=== PATIENT | female | born 1950 | race Caucasian/White ===

== ENCOUNTER 2017-09-29 10:20 | Inpatient (IN) | payer OTHER ==
[2017-09-29] MEDS ORDERED: SODIUM CHLORIDE 0.9% 500 ML INFUS.BAG IV ONE (11:03)
[2017-09-29] MEDS ORDERED: ACETAMINOPHEN 1000 MG/100 ML VIAL (NON FORMULARY) IVPB ONE (11:08)
--- NOTE | 2017-09-29 11:13 | PDOC ---
History of Present Illness - General Chief Complaint: Chest Pain Stated Complaint: CHEST PAIN Time Seen by Provider: 09/29/17 10:33 - History of Present Illness Initial Comments: 09/29/17 11:13 67 year old female with a PMH of HTN who presents to our ED c/o 1 week h/o productive (whitish and greenish sputum) cough with associated shortness of breath, subjective fever, generalized body aches and weakness. Patient notes associated non-radiating non qualifiable 2/10 chest pain. Patient also c/o L arm pain and swelling following administration of the Pneumovax vaccine 4 days previous. States she has been trying OTC medications for her cough and fever without symptomatic improvement prompting her visit to the ED. Patient denies any abdominal pain, dysuria/hematuria, diarrhea/constipation, recent travel or sick contacts. Past History - Past Medical History Allergies/Adverse Reactions: Allergies Allergy/AdvReac Type Severity Reaction Status Date / Time No Known Allergies Allergy Verified 09/29/17 10:23 Home Medications: Ambulatory Orders Amlodipine Besylate [Norvasc -] 5 mg PO DAILY 09/29/17 Clindamycin [Cleocin -] 300 mg PO TID #42 capsule 10/02/17 Lactobacillus Acidophilus [Bacid -] 1 tab PO DAILY #7 tab 10/02/17 COPD: No HTN: Yes - Surgical History Appendectomy: Yes Cholecystectomy: Yes - Suicide/Smoking/Psychosocial Hx Smoking History: Never smoked Review of Systems - Review of Systems Constitutional: Yes: Chills, Fever HEENTM: No: Recent change in vision Respiratory: Yes: Shortness of Breath, Productive cough (greenish sputum) Cardiac (ROS): Yes: Chest Pain, Lightheadedness. No: Palpitations, Syncope ABD/GI: No: Constipated, Diarrhea, Nausea, Vomiting : No: Burning, Dysuria *Physical Exam - Vital Signs Last Vital Signs Temp Pulse Resp BP Pulse Ox 97.9 F 103 H 16 122/72 100 09/29/17 10:24 09/29/17 10:24 09/29/17 10:24 09/29/17 10:24 09/29/17 10:24 - Physical Exam General Appearance: Yes: Nourished, Appropriately Dressed HEENT: positive: EOMI, JO Neck: positive: Trachea midline, Supple Respiratory/Chest: positive: Lungs Clear, Normal Breath Sounds Cardiovascular: positive: S1, S2. negative: Edema, JVD Gastrointestinal/Abdominal: positive: Normal Bowel Sounds, Soft Extremity: positive: Other (LUE erythema, warmth, TTP, 2+ radial pulse, full ROM ) Neurologic: positive: Fully Oriented, Alert ED Treatment Course - LABORATORY CBC & Chemistry Diagram: 10/02/17 06:30 10/02/17 06:30 - RADIOLOGY Radiology Studies Ordered: Category Date Time Status CHEST PA & LAT [RAD] Stat Radiology 09/29/17 11:01 Ordered Medical Decision Making - Medical Decision Making 09/29/17 11:20 67 year old female presents with 1 week h/o cough, body aches + LUE erythema, edema. Presumptive cellulitis diagnosis + possible PNA/r/o ACS/Influenza/Viral URI. 09/29/17 11:51 Leukocytosis 19, will start empiric Vancomycin for MRSA. Infectious disease consult pending. 09/29/17 12:35 CXR negative for consolidation/infiltrate/cardiomegaly. Troponin (-) x1. Influenza negative. Will admit patient to inpatient medicine service for further evaluation of cellulitis. Patient and patient's friend @ bedside counseled on POC. Will continue to monitor while in ED. *DC/Admit/Observation/Transfer Diagnosis at time of Disposition: Cellulitis - Discharge Dispostion Condition at time of disposition: Fair Admit: Yes - Prescriptions - Referrals - Patient Instructions - Post Discharge Activity
[2017-09-29 11:20] LABS: BASO % 1.4 % (0-2.0); EOS % 0.3 % (0-4.5); HEMATOCRIT 37.2 % (32.4-45.2); HEMOGLOBIN 12.5 GM/dL (10.7-15.3); LYMPH % 16.1 % (8-40); MCH 28.5 pg (25.7-33.7); MCHC 33.5 g/dl (32.0-36.0); MEAN CELL VOLUME 85.1 fl (80-96); MEAN PLT VOLUME 8.7 fl (7.5-11.1); NEUT % 72.2 % (42.8-82.8); PLATELET COUNT 376 K/MM3 (134-434); RBC 4.38 M/mm3 (3.60-5.2); RDW 14.1 % (11.6-15.6); WHITE BLOOD COUNT 19.1 K/mm3 (4.0-10.0)
[2017-09-29] MEDS ORDERED: ACETAMINOPHEN INJECTION 100 ML IVPB ONE (11:35)
[2017-09-29 11:41] LABS: CHLORIDE 103 mmol/L (98-107); SODIUM 138 mmol/L (136-145)
[2017-09-29 11:45] LABS: ALBUMIN 3.3 g/dl (3.4-5.0); ANION GAP 9 (8-16); BLOOD UREA NITROGEN 9 mg/dL (7-18); CALCIUM 9.2 mg/dL (8.5-10.1); CO2 26 mmol/L (21-32); GLUCOSE,RANDOM 126 mg/dL (74-106)
[2017-09-29 11:48] LABS: BILIRUBIN,TOTAL 0.5 mg/dL (0.2-1.0); CREATININE 0.8 mg/dL (0.55-1.02); SGPT/ALT 85 U/L (12-78); TOT PROT 7.3 g/dl (6.4-8.2)
[2017-09-29 11:51] LABS: ALK PHOS 131 U/L (45-117); POTASSIUM 4.1 mmol/L (3.5-5.1); SGOT/AST 78 U/L (15-37)
[2017-09-29] MEDS ORDERED: VANCOMYCIN 1,000 MG in DEXTROSE 5%-WATER - 250 ML IVPB ONE (12:34)
[2017-09-29] MEDS ORDERED: VANCOMYCIN 1 GRAM (PRE-DOCKED) 1,000 MG/250 ML BAG IVPB ONE (12:39)
--- NOTE | 2017-09-29 12:39 | PDOC ---
Attending Attestation - Resident Resident Name: DayoNisha - ED Attending Attestation I have performed the following: I have examined & evaluated the patient, The case was reviewed & discussed with the resident, I agree w/resident's findings & plan, Exceptions are as noted - HPI HPI: 09/29/17 12:35 "The patient is a 67 year old female with past medical history of hypertension who presents to the ED with complaints of 1 week of productive cough, fevers, and L arm pain. She reports productive white/green sputum and reports associated shortness of breath. The patient also reports a midsternal chest pain she relates to coughing and reports associated myalgias. Pt endorses subjective fevers without any measured temps. Additionally the patient received the pneumovax on 5 days ago and reports having worsening left arm pain, redness , and swelling since then. She denies any nausea, vomiting, diarrhea, headache, or urinary complaints. " - Physicial Exam PE: 09/29/17 12:37 "GENERAL: Awake, alert, and fully oriented, in no acute distress. HEAD: No signs of trauma EYES: PERRLA, EOMI, sclera anicteric, conjunctiva clear ENT: Auricles normal inspection, hearing grossly normal, nares patent, oropharynx clear without exudates. Moist mucosa NECK: Nontender, no stepoffs, Normal ROM, supple, no lymphadenopathy, JVD, or masses LUNGS: Breath sounds equal, clear to auscultation bilaterally. No wheezes, and no crackles HEART: Regular rate and rhythm, normal S1 and S2, no murmurs, rubs or gallops ABDOMEN: Soft, nontender, normoactive bowel sounds. No guarding, no rebound. No masses EXTREMITIES: Normal range of motion, no edema. No clubbing or cyanosis. No cords, erythema, or tenderness NEUROLOGICAL: Cranial nerves II through XII intact. 5/5 strength and sensation in all extremities, Normal speech, normal gait, normal cerebellar function SKIN: L arm with 10cm area of redness, induration, tender to palpation - Medical Decision Making 09/29/17 12:38 67 F with fevers, cough, and L arm swelling/pain. Exam consistent with cellulitis of L arm. Will also evaluate for PNA given cough. - Labs, cultures - CXR - Vancomycin
[2017-09-29 14:27] VITALS: BMI 26.6
--- NOTE | 2017-09-29 15:18 | HP ---
CHIEF COMPLAINT: fever, chills, left upper extremity edema and erythema PCP: eliel martinez MD in [place] HISTORY OF PRESENT ILLNESS: This is a 67 year old female with PMHx of HTN, hysterectomy (1998), appendectomy , cholecytectomy, benign pancreatic tumor removal (2001), who presented to the ED with cough since before , chills, fever, wheezing since receiving the Pneumovax on . The patient reports prior to receiving the vaccine she had a cough with yellowish sputum. On morning she received the pneumonia vaccine and then in the afternoon developed a subjective fever and chills. The patient also reports on Thursday she noticed erythema and edema to the vaccine site. She also states she has some sternal chest pain with coughing. She denies any palpitations, headache, dizziness, urinary symptoms, lower extremity edema. The patient also notes arthalgia, myalgia, weakness. ER course was notable for: (1) Temp 97.9, pulse 103, BP 122/72, resp 16, O2 100% on RA (2) WBC 19.1 (3) AST 78, ALT 85, alk phos 131 Recent Travel: Returned from [place] on 08/27/17 PAST MEDICAL HISTORY: HTN PAST SURGICAL HISTORY: As above Social History: Smoking: denies Alcohol: drinks one glass of wine per night Drugs: denies Family History: Allergies No Known Allergies Allergy (Verified 09/29/17 10:23) HOME MEDICATIONS: Home Medications Medication Instructions Recorded Amlodipine Besylate [Norvasc -] 5 mg PO DAILY 09/29/17 REVIEW OF SYSTEMS CONSTITUTIONAL: Subjective fever, chills, generalized weakness since afternoon Absent: diaphoresis, malaise, loss of appetite, weight change HEENT: Absent: rhinorrhea, nasal congestion, throat pain, throat swelling, difficulty swallowing, mouth swelling, ear pain, eye pain, visual changes CARDIOVASCULAR: Sternal chest pain with coughing Absent: syncope, palpitations, irregular heart rate, lightheadedness, peripheral edema RESPIRATORY: + cough with yellow sputum. Wheezing and chest tightness noted. Absent: shortness of breath, dyspnea with exertion, orthopnea, stridor, hemoptysis GASTROINTESTINAL: Absent: abdominal pain, abdominal distension, nausea, vomiting, diarrhea, constipation, melena, hematochezia GENITOURINARY: Absent: dysuria, frequency, urgency, hesitancy, hematuria, flank pain, genital pain MUSCULOSKELETAL: Arthralgia, myalgia since afternoon. Absent: joint swelling, back pain, neck pain SKIN: Absent: rash, itching, pallor HEMATOLOGIC/IMMUNOLOGIC: Absent: easy bleeding, easy bruising, lymphadenopathy, frequent infections ENDOCRINE: Absent: unexplained weight gain, unexplained weight loss, heat intolerance, cold intolerance NEUROLOGIC: Absent: headache, focal weakness or paresthesias, dizziness, unsteady gait, seizure, mental status changes, bladder or bowel incontinence PSYCHIATRIC: Absent: anxiety, depression, suicidal or homicidal ideation, hallucinations. PHYSICAL EXAMINATION Vital Signs - 24 hr 09/29/17 09/29/17 09/29/17 10:24 12:16 14:08 Temperature 97.9 F 99.1 F 97.2 F L Pulse Rate 103 H Pulse Rate [ 89 Left] Respiratory 16 17 17 Rate Blood Pressure 122/72 Blood Pressure 113/64 [Right] O2 Sat by Pulse 100 97 Oximetry (%) GENERAL: Awake, alert, and fully oriented, in no acute distress. HEAD: Normal with no signs of trauma. EYES: Pupils equal, round and reactive to light, extraocular movements intact, sclera anicteric, conjunctiva clear. No lid lag. EARS, NOSE, THROAT: Ears normal, nares patent, oropharynx clear without exudates. Moist mucous membranes. NECK: Normal range of motion, supple without lymphadenopathy, JVD, or masses. LUNGS: Breath sounds equal, clear to auscultation bilaterally. No wheezes, and no crackles. No accessory muscle use. HEART: Reproducible sternal chest pain. Regular rate and rhythm, normal S1 and S2 without murmur, rub or gallop. ABDOMEN: Soft, nontender, not distended, normoactive bowel sounds, no guarding, no rebound, no masses. No hepatomegaly or splenomegaly. MUSCULOSKELETAL: Normal range of motion at all joints. No bony deformities or tenderness. No CVA tenderness. UPPER EXTREMITIES: Left upper extremity with proximal erythema, edema, induration. No fluctuance noted. 2+ pulses, warm, well-perfused. No cyanosis. No clubbing. LOWER EXTREMITIES: 2+ pulses, warm, well-perfused. No calf tenderness. No peripheral edema. NEUROLOGICAL: Cranial nerves II-XII intact. Normal speech. Normal gait. PSYCHIATRIC: Cooperative. Good eye contact. Appropriate mood and affect. SKIN: Warm, dry, normal turgor, normal capillary refill. Laboratory Results - last 24 hr 09/29/17 09/29/17 11:15 11:15 WBC 19.1 H RBC 4.38 Hgb 12.5 Hct 37.2 MCV 85.1 MCH 28.5 MCHC 33.5 RDW 14.1 Plt Count 376 MPV 8.7 Neutrophils % 72.2 Lymphocytes % 16.1 Monocytes % 10.0 Eosinophils % 0.3 Basophils % 1.4 Sodium 138 Potassium 4.1 Chloride 103 Carbon Dioxide 26 Anion Gap 9 BUN 9 Creatinine 0.8 Creat Clearance w eGFR > 60 Random Glucose 126 H Calcium 9.2 Total Bilirubin 0.5 AST 78 H ALT 85 H Alkaline Phosphatase 131 H Creatine Kinase 42 Troponin I < 0.02 B-Natriuretic Peptide 228.00 H Total Protein 7.3 Albumin 3.3 L Assessment: This is a 67 year old female with PMHx of HTN, hysterectomy (1998), appendectomy, cholecytectomy, benign pancreatic tumor removal (2001), who presented to the ED with cough since before , chills, fever, wheezing since receiving the Pneumovax on . Plan: 1) Sepsis 2/2 left upper arm cellulitis - WBC elevated, tachycardia - Received pneumovax on - Now with erythema, induration. No fluctuance noted - Given Vancomycin in ED - F/u blood cultures - F/u sputum culture - No eosinophila which argues against allergic reaction - F/u ID consult 2) Chest pain - Reproducible sternal and mid back chest pain - Trend troponins - No signs of ACS - Likely costochondritis from coughing - Will give Ibuprofen and monitor response 3) Cough - Atypical pneumonia? - F/u ID consult 4) Elevated AST, ALT, alk phos - Related to atypical pneumonia vs. hepatitis? vs. other - F/u liver ultrasound, f/u hepatitis panel 5) F/E/N: - Sodium controlled diet - Monitor electrolytes 6) Prophylaxis: - SCDs bilaterally 7) Dispo: - Requires continued inpatient care CODE STATUS: FULL CODE Visit type - Emergency Visit Emergency Visit: Yes ED Registration Date: 09/29/17 Care time: The patient presented to the Emergency Department on the above date and was hospitalized for further evaluation of their emergent condition. - New Patient This patient is new to me today: Yes Date on this admission: 09/29/17 - Critical Care Critical Care patient: No Hospitalist Screening - Colonoscopy Questionnaire Colonoscopy Questionnaire: Colonoscopy Questionnaire - Patient: 50 - 75 years old and never had a screening colonoscopy: No History of colon or rectal polyps, or CA: Unknown History of IBD, Crohn's disease or UC: Unknown History of abdominal radiation therapy as a child: Unknown - Relative: 1 with colon or rectal CA, or polyps at age 60 or younger: Unknown Colon or rectal CA diagnosed at age 45 or younger: Unknown Multiple relatives with colon or rectal CA: Unknown - Outcome: Screening Result: Negative Screen
--- NOTE | 2017-09-29 15:51 | CONSULT ---
Consultation: REQUESTING PROVIDER: CONSULT REQUEST: We have been asked to medically evaluate this patient for cellulitis. HISTORY OF PRESENT ILLNESS: Pt is accompanied by her neighbor who helped with translation and providing some history. Pt is a 67 y/o F with PMH HTN, pancreatic tumor s/p excision, and 3 "lung infections" who presented to ED with complaint of 1 week productive cough, subjective fevers, malaise and L arm pain and redness since getting her pnemovax 4 days ago at [facility]. Pt states she had been feeling unwell with some cough prior to getting the vaccine. She has continued to have the cough with white/green sputum, and has developed anterior and posterior chest pain associated with coughing. She felt she was getting worse everyday and ultimately decided today to come to the hospital. Pt states the redness in her arm began on Thu (the day after her vaccine) and had been getting worse until she got to the hospital and started receiving medication. She feels it is getting better now. Pt recently travelled from [place] on August 27. She states her also has a cold, but she thinks he got it from her. Pt drinks wine socially with dinner and has never smoked or used drugs. Denies nausea, vomiting, diarrhea. REVIEW OF SYSTEMS: CONSTITUTIONAL: subjective fever, malaise Absent: , chills, diaphoresis, generalized weakness, loss of appetite, weight change HEENT: Absent: rhinorrhea, nasal congestion, throat pain, throat swelling, difficulty swallowing, mouth swelling, ear pain, eye pain, visual changes CARDIOVASCULAR: chest pain Absent: , syncope, palpitations, irregular heart rate, lightheadedness, peripheral edema RESPIRATORY: cough, shortness of breath Absent: , dyspnea with exertion, orthopnea, wheezing, stridor, hemoptysis GASTROINTESTINAL: Absent: abdominal pain, abdominal distension, nausea, vomiting, diarrhea, constipation, melena, hematochezia GENITOURINARY: Absent: dysuria, frequency, urgency, hesitancy, hematuria, flank pain, genital pain MUSCULOSKELETAL: Absent: myalgia, arthralgia, joint swelling, back pain, neck pain SKIN: Absent: rash, itching, pallor HEMATOLOGIC/IMMUNOLOGIC: Absent: easy bleeding, easy bruising, lymphadenopathy, frequent infections ENDOCRINE: Absent: unexplained weight gain, unexplained weight loss, heat intolerance, cold intolerance NEUROLOGIC: Absent: headache, focal weakness or paresthesias, dizziness, unsteady gait, seizure, mental status changes, bladder or bowel incontinence PSYCHIATRIC: Absent: anxiety, depression, suicidal or homicidal ideation, hallucinations. PHYSICAL EXAMINATION Vital Signs - 24 hr 09/29/17 09/29/17 09/29/17 10:24 12:16 14:08 Temperature 97.9 F 99.1 F 97.2 F L Pulse Rate 103 H Pulse Rate [ 89 Left] Respiratory 16 17 17 Rate Blood Pressure 122/72 Blood Pressure 113/64 [Right] O2 Sat by Pulse 100 97 Oximetry (%) 09/29/17 15:16 Temperature 97.8 F Pulse Rate 81 Pulse Rate [ Left] Respiratory 18 Rate Blood Pressure 124/69 Blood Pressure [Right] O2 Sat by Pulse Oximetry (%) GENERAL: Awake, alert, and fully oriented, in no acute distress. HEAD: Normal with no signs of trauma. EYES: extraocular movements intact, sclera anicteric, conjunctiva clear. No lid lag. EARS, NOSE, THROAT: oropharynx clear without exudates. Moist mucous membranes. NECK: Normal range of motion, supple without lymphadenopathy, JVD, or masses. LUNGS: Breath sounds equal, clear to auscultation bilaterally. No wheezes, and no crackles. No accessory muscle use. HEART: Regular rate and rhythm, normal S1 and S2 without murmur, rub or gallop. ABDOMEN: Soft, nontender, not distended, normoactive bowel sounds, no guarding, no rebound, no masses. No hepatomegaly or splenomegaly. MUSCULOSKELETAL: Normal range of motion at all joints. No bony deformities or tenderness. No CVA tenderness. UPPER EXTREMITIES: Left upper arm with erythematous region extending approximately 15cm across. Does not extend to elbow or shoulder. Not raised. 2+ pulses, warm, well-perfused. No cyanosis. No clubbing. Cap refill <2 seconds. No peripheral edema. LOWER EXTREMITIES: 2+ pulses, warm, well-perfused. No calf tenderness. No peripheral edema. NEUROLOGICAL: Normal speech. PSYCHIATRIC: Cooperative. Good eye contact. Appropriate mood and affect. SKIN: Warm, dry, normal turgor, no rashes or lesions noted. Laboratory Results - last 24 hr 09/29/17 09/29/17 11:15 11:15 WBC 19.1 H RBC 4.38 Hgb 12.5 Hct 37.2 MCV 85.1 MCH 28.5 MCHC 33.5 RDW 14.1 Plt Count 376 MPV 8.7 Neutrophils % 72.2 Lymphocytes % 16.1 Monocytes % 10.0 Eosinophils % 0.3 Basophils % 1.4 Sodium 138 Potassium 4.1 Chloride 103 Carbon Dioxide 26 Anion Gap 9 BUN 9 Creatinine 0.8 Creat Clearance w eGFR > 60 Random Glucose 126 H Calcium 9.2 Total Bilirubin 0.5 AST 78 H ALT 85 H Alkaline Phosphatase 131 H Creatine Kinase 42 Troponin I < 0.02 B-Natriuretic Peptide 228.00 H Total Protein 7.3 Albumin 3.3 L Active Medications Generic Name Dose Route Start Last Admin Trade Name Freq PRN Reason Stop Dose Admin Amlodipine Besylate 5 mg 09/30/17 10:00 Norvasc - PO DAILY GEORGE ASSESSMENT/PLAN: Pt is a 67 y/o F with PMH HTN, pancreatic tumor s/p excision, who presented to ED with 1 week of URI and 4 d of left arm cellulitis following a vaccine in L upper arm. #Cellulitis -onset following vaccine -pulses/sensation intact -WBC 19 -on Vanco -f/u Sputum Cx -f/u BCx -region of erythema was circled in black marker #URI -Cough, malaise x 1week -CXR negative -? Viral -rapid flu swab negative -add Rocephin -f/u Sputum Cx -f/u BCx Georgi Lopez MD PGY-1 ID Dispo: We will continue to follow the patient. Thank you for this consultative opportunity. Visit type - Emergency Visit Emergency Visit: No - New Patient This patient is new to me today: Yes Date on this admission: 09/29/17 - Critical Care Critical Care patient: No
[2017-09-29] MEDS ORDERED: IBUPROFEN 600 MG TABLET (FP) PO ONE (16:21)
--- NOTE | 2017-09-29 16:44 | EKG ---
Test Reason : Blood Pressure : / mmHG Vent. Rate : 099 BPM Atrial Rate : 099 BPM P-R Int : 190 ms QRS Dur : 074 ms QT Int : 350 ms P-R-T Axes : 036 006 032 degrees QTc Int : 449 ms NORMAL SINUS RHYTHM POSSIBLE LEFT ATRIAL ENLARGEMENT BORDERLINE ECG NO PREVIOUS ECGS AVAILABLE Confirmed by MD Margie, Andrade ([id number]) on 09/29/2017 4:44:26 PM Referred By: Confirmed By:Andrade Hanson MD
[2017-09-29] MEDS ORDERED: DEXTROSE 5%-WATER 100 ML IVPB ONE (17:20)
[2017-09-29] MEDS: CEFTRIAXONE 2 GM in DEXTROSE 5%-WATER 100 ML IVPB SCH (17:31)
[2017-09-29] MEDS: VANCOMYCIN 1,000 MG in DEXTROSE 5%-WATER - 250 ML IVPB SCH (19:38)
--- NOTE | 2017-09-29 21:06 | PN ---
Teaching Attending Note Name of Resident: Georgi Lopez ATTENDING PHYSICIAN STATEMENT I saw and evaluated the patient. I reviewed the resident's note and discussed the case with the resident. I agree with the resident's findings and plan as documented. SUBJECTIVE: OBJECTIVE: ASSESSMENT AND PLAN: URI Cellulitis v. vaccine injection-site reaction Leukocytosis Pending cultures, empiric ceftriaxone/ vancomycin Warm compresses prn
[2017-09-29] MEDS: guaiFENesin 200 MG/10 ML 10 ML UNIT-DOSE CUPS PO PRN (23:22)
[2017-09-30] MEDS: VANCOMYCIN 1,000 MG in DEXTROSE 5%-WATER - 250 ML IVPB SCH ×2 (05:25→16:58)
[2017-09-30 07:37] LABS: BASO % 0.8 % (0-2.0); EOS % 1.4 % (0-4.5); HEMATOCRIT 33.6 % (32.4-45.2); HEMOGLOBIN 11.4 GM/dL (10.7-15.3); LYMPH % 15.5 % (8-40); MCH 29.2 pg (25.7-33.7); MEAN PLT VOLUME 9.5 fl (7.5-11.1); MONO % 7.8 % (3.8-10.2); NEUT % 74.5 % (42.8-82.8); PLATELET COUNT 372 K/MM3 (134-434); RBC 3.91 M/mm3 (3.60-5.2); RDW 14.1 % (11.6-15.6); WHITE BLOOD COUNT 15.2 K/mm3 (4.0-10.0)
[2017-09-30 07:59] LABS: ALBUMIN 2.9 g/dl (3.4-5.0); ANION GAP 10 (8-16); BLOOD UREA NITROGEN 8 mg/dL (7-18); CALCIUM 8.2 mg/dL (8.5-10.1); CHLORIDE 107 mmol/L (98-107); CO2 23 mmol/L (21-32); CREATININE 0.6 mg/dL (0.55-1.02); GLUCOSE,RANDOM 136 mg/dL (74-106); POTASSIUM 3.8 mmol/L (3.5-5.1); SGOT/AST 37 U/L (15-37); SGPT/ALT 62 U/L (12-78); SODIUM 140 mmol/L (136-145)
[2017-09-30 08:00] LABS: ALK PHOS 124 U/L (45-117); BILIRUBIN,TOTAL 0.4 mg/dL (0.2-1.0); TOT PROT 6.5 g/dl (6.4-8.2)
[2017-09-30] MEDS ORDERED: DEXTROSE 5%-WATER 100 ML IVPB ONE ×2 (09:14→09:43)
[2017-09-30] MEDS: amLODIPine BESYLATE 5 MG TABLET (FP) PO SCH (09:41)
[2017-09-30] MEDS: CEFTRIAXONE 2 GM in DEXTROSE 5%-WATER 100 ML IVPB SCH (09:45)
--- NOTE | 2017-09-30 11:18 | PN ---
Progress Note (short form) - Note Progress Note: Subjective: The patient was seen and examined at the bedside, she states she is feeling better today. LUE erythema over marked margins Current Medications Generic Name Dose Route Start Last Admin Trade Name Alem PRN Reason Stop Dose Admin Amlodipine Besylate 5 mg 09/30/17 10:00 09/30/17 09:41 Norvasc - PO 5 mg DAILY GEORGE Administration Guaifenesin 10 ml 09/29/17 23:14 09/29/17 23:22 Robitussin - PO 10 ml Q6H PRN Administration COUGH Vancomycin HCl 1,000 mg/ 250 mls @ 166.667 mls/hr 09/29/17 16:45 09/30/17 05: 25 Dextrose IVPB 166.667 mls/hr Q12H GEORGE Administration Ceftriaxone Sodium 2 gm/ 100 mls @ 100 mls/hr 09/29/17 16:45 09/30/17 09:45 Dextrose IVPB 100 mls/hr DAILY GEORGE Administration Objective: Vital Signs Period Temp Pulse Resp BP Sys/Leon Pulse Ox Last 24 Hr 97.2 F-99.1 F 77-93 17-20 113-137/64-76 97-100 Physical Exam: General: NAD, A&Ox3 Lungs: CTA bilaterally Heart: RRR, S1S2 Abd: Soft, non-tender, non-distended Ext: LUE with erythema, edema, induration, warmth CBCD WBC 15.2 K/mm3 (4.0-10.0) H 09/30/17 06:20 RBC 3.91 M/mm3 (3.60-5.2) 09/30/17 06:20 Hgb 11.4 GM/dL (10.7-15.3) 09/30/17 06:20 Hct 33.6 % (32.4-45.2) 09/30/17 06:20 MCV 86.0 fl (80-96) 09/30/17 06:20 MCHC 34.0 g/dl (32.0-36.0) 09/30/17 06:20 RDW 14.1 % (11.6-15.6) 09/30/17 06:20 Plt Count 372 K/MM3 (134-434) 09/30/17 06:20 MPV 9.5 fl (7.5-11.1) 09/30/17 06:20 CMP Sodium 140 mmol/L (136-145) 09/30/17 06:20 Potassium 3.8 mmol/L (3.5-5.1) 09/30/17 06:20 Chloride 107 mmol/L (98-107) 09/30/17 06:20 Carbon Dioxide 23 mmol/L (21-32) 09/30/17 06:20 Anion Gap 10 (8-16) 09/30/17 06:20 BUN 8 mg/dL (7-18) 09/30/17 06:20 Creatinine 0.6 mg/dL (0.55-1.02) 09/30/17 06:20 Creat Clearance w eGFR > 60 (>60) 09/30/17 06:20 Random Glucose 136 mg/dL (74-106) H 09/30/17 06:20 Calcium 8.2 mg/dL (8.5-10.1) L 09/30/17 06:20 Total Bilirubin 0.4 mg/dL (0.2-1.0) 09/30/17 06:20 AST 37 U/L (15-37) 09/30/17 06:20 ALT 62 U/L (12-78) 09/30/17 06:20 Alkaline Phosphatase 124 U/L (45-117) H 09/30/17 06:20 Total Protein 6.5 g/dl (6.4-8.2) 09/30/17 06:20 Albumin 2.9 g/dl (3.4-5.0) L 09/30/17 06:20 CARDIAC ENZYMES Creatine Kinase 33 IU/L (26-192) 09/29/17 15:20 Troponin I < 0.02 ng/ml (0.00-0.05) 09/29/17 15:20 Microbiology 09/29/17 11:11 Nasopharyngeal Swab Influenza Types A,B Antigen (ALEXANDRA) - Final 09/29/17 11:11 Nasopharyngeal Swab - Final Assessment: This is a 67 year old female with PMHx of HTN, hysterectomy (1998), appendectomy, cholecytectomy, benign pancreatic tumor removal (2001), who presented to the ED with cough since before , chills, fever, wheezing since receiving the Pneumovax on . Plan: 1) Sepsis 2/2 left upper arm cellulitis - WBC elevated but trending down - Received pneumovax on - F/u blood cultures - F/u sputum culture - Continue Vancomycin and Ceftriaxone - Appreciate ID consult 2) Chest pain - Reproducible sternal and mid back chest pain - Troponins negative - No signs of ACS - Likely costochondritis from coughing - Patient states improvement with ibuprofen 3) Cough - Atypical pneumonia? - F/u ID consult 4) Elevated AST, ALT, alk phos - Related to atypical pneumonia vs. hepatitis? vs. other - AST/ALT wnl - Alk phos remains elevated - Liver ultrasound diffuse fatty infiltration - Hepatitis panel sent 5) F/E/N: - Sodium controlled diet - Monitor electrolytes 6) Prophylaxis: - SCDs bilaterally 7) Dispo: - Requires continued inpatient care CODE STATUS: FULL CODE Visit type - Emergency Visit Emergency Visit: Yes ED Registration Date: 09/29/17 Care time: The patient presented to the Emergency Department on the above date and was hospitalized for further evaluation of their emergent condition. - New Patient This patient is new to me today: No - Critical Care Critical Care patient: No
--- NOTE | 2017-09-30 14:32 | PN ---
Physical Exam: SUBJECTIVE: Patient seen and examined at bedside. No acute events. Pt states she has not been coughing since last night and her chest pain is resolving. L arm erythema has expanded and was re-marked. Pt also had a liver ultrasound which showed fatty liver. No other complaints. Pt feels well. Afebrile. OBJECTIVE: Vital Signs Period Temp Pulse Resp BP Sys/Leon Pulse Ox Last 24 Hr 97.7 F-98.7 F 77-93 18-20 117-137/60-76 97-100 GENERAL: The patient is awake, alert, and fully oriented, in no acute distress. HEAD: Normal with no signs of trauma. EYES: sclera anicteric, conjunctiva clear. No ptosis. ENT: oropharynx clear without exudates, moist mucous membranes. NECK: Trachea midline, full range of motion, supple. LUNGS: Breath sounds equal, clear to auscultation bilaterally, no wheezes, no crackles, no accessory muscle use. HEART: Regular rate and rhythm, S1, S2 without murmur, rub or gallop. ABDOMEN: Soft, nontender, nondistended, normoactive bowel sounds, no guarding, no rebound, no hepatosplenomegaly, no masses. EXTREMITIES: 2+ pulses, warm, well-perfused, no edema. LUE with region of cellulitis. Expanded with border re-drawn. NEUROLOGICAL: Cranial nerves II through XII grossly intact. Normal speech, gait not observed. PSYCH: Normal mood, normal affect. SKIN: as above Laboratory Results - last 24 hr 09/29/17 09/30/17 09/30/17 15:20 06:20 06:20 WBC 15.2 H RBC 3.91 Hgb 11.4 Hct 33.6 MCV 86.0 MCH 29.2 MCHC 34.0 RDW 14.1 Plt Count 372 MPV 9.5 Neutrophils % 74.5 Lymphocytes % 15.5 Monocytes % 7.8 Eosinophils % 1.4 D Basophils % 0.8 Sodium 140 Potassium 3.8 Chloride 107 Carbon Dioxide 23 Anion Gap 10 BUN 8 Creatinine 0.6 Creat Clearance w eGFR > 60 Random Glucose 136 H Calcium 8.2 L Total Bilirubin 0.4 AST 37 ALT 62 Alkaline Phosphatase 124 H Creatine Kinase 33 Troponin I < 0.02 Total Protein 6.5 Albumin 2.9 L Active Medications Generic Name Dose Route Start Last Admin Trade Name Freq PRN Reason Stop Dose Admin Amlodipine Besylate 5 mg 09/30/17 10:00 09/30/17 09:41 Norvasc - PO 5 mg DAILY GEORGE Administration Guaifenesin 10 ml 09/29/17 23:14 09/29/17 23:22 Robitussin - PO 10 ml Q6H PRN Administration COUGH Vancomycin HCl 1,000 mg/ 250 mls @ 166.667 mls/hr 09/29/17 16:45 09/30/17 05: 25 Dextrose IVPB 166.667 mls/hr Q12H GEORGE Administration Ceftriaxone Sodium 2 gm/ 100 mls @ 100 mls/hr 09/29/17 16:45 09/30/17 09:45 Dextrose IVPB 100 mls/hr DAILY GEORGE Administration ASSESSMENT/PLAN: Pt is a 67 y/o F with PMH HTN, pancreatic tumor s/p excision, who presented to ED with 1 week of URI and 4 d of left arm cellulitis following a vaccine in L upper arm. #Cellulitis -onset following vaccine -pulses/sensation intact -WBC improving -region of erythema was circled in black marker. It since expanded and was re- drawn #URI -Cough, malaise x 1week -CXR negative -? Viral -rapid flu swab negative Plan -Vanc day 2, Rocephin day 2 -f/u Sputum Cx -f/u BCx Georgi Lopez MD PGY-1 ID Visit type - Emergency Visit Emergency Visit: No - New Patient This patient is new to me today: No - Critical Care Critical Care patient: No
--- NOTE | 2017-09-30 14:50 | PN ---
Teaching Attending Note Name of Resident: Georgi Lopez ATTENDING PHYSICIAN STATEMENT I saw and evaluated the patient. I reviewed the resident's note and discussed the case with the resident. I agree with the resident's findings and plan as documented. SUBJECTIVE: feels better less cough OBJECTIVE: Vital Signs Period Temp Pulse Resp BP Sys/Leon Pulse Ox Last 24 Hr 97.7 F-98.7 F 77-93 18-20 117-137/60-76 97-100 cor-rrr lungs clear arm is indurated and red abd nt ext no edema CBC, BMP 09/30/17 06:20 09/30/17 06:20 Microbiology 09/29/17 11:11 Nasopharyngeal Swab Influenza Types A,B Antigen (ALEXANDRA) - Final 09/29/17 11:11 Nasopharyngeal Swab - Final Current Medications Amlodipine Besylate (Norvasc -) 5 mg PO DAILY [facility] Last Admin: 09/30/17 09:41 Dose: 5 mg Guaifenesin (Robitussin -) 10 ml PO Q6H PRN PRN Reason: COUGH Last Admin: 09/29/17 23:22 Dose: 10 ml Vancomycin HCl 1,000 mg/ (Dextrose) 250 mls @ 166.667 mls/hr IVPB Q12H GEORGE Last Admin: 09/30/17 05:25 Dose: 166.667 mls/hr Ceftriaxone Sodium 2 gm/ (Dextrose) 100 mls @ 100 mls/hr IVPB DAILY [facility] Last Admin: 09/30/17 09:45 Dose: 100 mls/hr ASSESSMENT AND PLAN: cellulitis versus injection reaction continue vancomycin and ceftriaxone arm about the same WBC improving she feels better
[2017-09-30] MEDS ORDERED: PT OWN MED DRAWER 7, Y5N ONE (16:46)
[2017-09-30] MEDS: guaiFENesin 200 MG/10 ML 10 ML UNIT-DOSE CUPS PO PRN (22:33)
[2017-09-30] MEDS ORDERED: IBUPROFEN 400 MG TABLET (FP) PO ONE (23:55)
[2017-10-01] MEDS: VANCOMYCIN 1,000 MG in DEXTROSE 5%-WATER - 250 ML IVPB SCH ×2 (04:35→18:22)
[2017-10-01 07:58] LABS: BASO % 0.2 % (0-2.0); EOS % 2.5 % (0-4.5); HEMATOCRIT 34.2 % (32.4-45.2); HEMOGLOBIN 11.6 GM/dL (10.7-15.3); LYMPH % 18.3 % (8-40); MCH 29.1 pg (25.7-33.7); MCHC 33.8 g/dl (32.0-36.0); MEAN CELL VOLUME 86.2 fl (80-96); MEAN PLT VOLUME 9.3 fl (7.5-11.1); MONO % 9.8 % (3.8-10.2); NEUT % 69.2 % (42.8-82.8); PLATELET COUNT 391 K/MM3 (134-434); RBC 3.97 M/mm3 (3.60-5.2); RDW 14.3 % (11.6-15.6); WHITE BLOOD COUNT 11.8 K/mm3 (4.0-10.0)
[2017-10-01] MEDS ORDERED: DEXTROSE 5%-WATER 100 ML IVPB ONE (09:14)
[2017-10-01] MEDS: amLODIPine BESYLATE 5 MG TABLET (FP) PO SCH (09:31)
[2017-10-01] MEDS: guaiFENesin 200 MG/10 ML 10 ML UNIT-DOSE CUPS PO PRN ×2 (09:31→21:24)
[2017-10-01] MEDS: CEFTRIAXONE 2 GM in DEXTROSE 5%-WATER 100 ML IVPB SCH (09:31)
[2017-10-01 10:12] LABS: HEP.C VIRUS AB <0.1 s/co ratio (0.0-0.9)
--- NOTE | 2017-10-01 11:14 | PN ---
Physical Exam: SUBJECTIVE: Patient seen and examined at the bedside. c/o cough, but overall feels better. Left arm without pain as per pt. OBJECTIVE: left cellulitis arm improving, WBC trending down 19.1>11.8, no fevers overnight , vitals stable Repeat Vanco levels at 4p today as lab may have been drawn too early Patient is asking for new PCP referral as she lives in [place] and is unable to travel to [place] to see her PCP. Will assign one prior to d/c with an follow up appointment Lungs clear to auscultation Vital Signs Period Temp Pulse Resp BP Sys/Leon Pulse Ox Last 24 Hr 97.9 F-98.4 F 78-93 17-20 117-140/60-78 96-97 GENERAL: The patient is awake, alert, and fully oriented, in no acute distress. HEAD: Normal with no signs of trauma. EYES: PERRL, extraocular movements intact, sclera anicteric, conjunctiva clear. No ptosis. ENT: Ears normal, nares patent, oropharynx clear without exudates, moist mucous membranes. NECK: Trachea midline, full range of motion, supple. LUNGS: Breath sounds equal, clear to auscultation bilaterally HEART: Regular rate and rhythm ABDOMEN: Soft, nontender, nondistended, normoactive bowel sounds, no guarding, no rebound, no hepatosplenomegaly, no masses. EXTREMITIES: no edema. NEUROLOGICAL: Normal speech, gait not observed. PSYCH: Normal mood, normal affect. SKIN: left arm cellulitis, improving, areas marked. Laboratory Results - last 24 hr 09/29/17 10/01/17 10/01/17 17:15 06:30 06:30 WBC 11.8 H RBC 3.97 Hgb 11.6 Hct 34.2 MCV 86.2 MCH 29.1 MCHC 33.8 RDW 14.3 Plt Count 391 MPV 9.3 Neutrophils % 69.2 Lymphocytes % 18.3 Monocytes % 9.8 Eosinophils % 2.5 Basophils % 0.2 Vancomycin Pre-Dose 39.994 H* Hepatitis A IgM Ab Negative Hep Bs Antigen Negative Hep B Core IgM Ab Negative Hepatitis C Antibody <0.1 Active Medications Generic Name Dose Route Start Last Admin Trade Name Freq PRN Reason Stop Dose Admin Amlodipine Besylate 5 mg 09/30/17 10:00 10/01/17 09:31 Norvasc - PO 5 mg DAILY GEORGE Administration Guaifenesin 10 ml 09/29/17 23:14 10/01/17 09:31 Robitussin - PO 10 ml Q6H PRN Administration COUGH Vancomycin HCl 1,000 mg/ 250 mls @ 166.667 mls/hr 09/29/17 16:45 10/01/17 04: 35 Dextrose IVPB 166.667 mls/hr Q12H GEORGE Administration Ceftriaxone Sodium 2 gm/ 100 mls @ 100 mls/hr 09/29/17 16:45 10/01/17 09:31 Dextrose IVPB 100 mls/hr DAILY GEORGE Administration ASSESSMENT/PLAN: Patient is a 67 year old female with a significant medical history of hypertension, hysterectomy, appendectomy, cholecytectomy and benign pancreatic tumor removal (2001). She presents to the ED on 09/29/2017 with left arm cellulitis after she received the pneumonia vaccine. ID Cellulitis of left upper arm, improving Developed cellulits post pneumococcal vaccine On Vanco BID and Ceftriaxone BC negative, afebrile, vitals stable ID following Card: Hypertension, controlled On Norvasc, monitor Chest pain, resolved trops negative Cough, improving Lungs clear to auscultation No fevers, vitals stable, tolerating room air Chest xray negative GI: AST, ALT, alk phos trended down No abd pain or discomfort ultrasound reviewed F.E.N. Fluids: tolerating PO Electrolytes: monitor Nutrition: low salt Prophy: DVT: SCDs, ambulation GI: Zantac Disposition: full code. Will need new PCP referral with a follow up appointment. Visit type - Emergency Visit Emergency Visit: Yes ED Registration Date: 09/29/17 Care time: The patient presented to the Emergency Department on the above date and was hospitalized for further evaluation of their emergent condition. - New Patient This patient is new to me today: Yes Date on this admission: 10/01/17 - Critical Care Critical Care patient: No - Discharge Referral Referred to [facility] No
--- NOTE | 2017-10-01 13:55 | PN ---
Physical Exam: SUBJECTIVE: Patient seen and examined at bedside. No acute events. Coughing has resolved. Arm erythema is reduced since yesterday. Liver enzymes normalizing. OBJECTIVE: Vital Signs Period Temp Pulse Resp BP Sys/Leon Pulse Ox Last 24 Hr 97.9 F-98.4 F 78-93 17-20 117-140/60-78 96-97 GENERAL: The patient is awake, alert, and fully oriented, in no acute distress. HEAD: Normal with no signs of trauma. EYES: sclera anicteric, conjunctiva clear. No ptosis. ENT: oropharynx clear without exudates, moist mucous membranes. NECK: Trachea midline, full range of motion, supple. LUNGS: Breath sounds equal, clear to auscultation bilaterally, no wheezes, no crackles, no accessory muscle use. HEART: Regular rate and rhythm, S1, S2 without murmur, rub or gallop. ABDOMEN: Soft, nontender, nondistended, normoactive bowel sounds, no guarding, no rebound, no hepatosplenomegaly, no masses. EXTREMITIES: 2+ pulses, warm, well-perfused, no edema. LUE with region of erythema. Improved since yesterday. NEUROLOGICAL: Cranial nerves II through XII grossly intact. Normal speech, gait not observed. PSYCH: Normal mood, normal affect. SKIN: as above Laboratory Results - last 24 hr 09/29/17 10/01/17 10/01/17 17:15 06:30 06:30 WBC 11.8 H RBC 3.97 Hgb 11.6 Hct 34.2 MCV 86.2 MCH 29.1 MCHC 33.8 RDW 14.3 Plt Count 391 MPV 9.3 Neutrophils % 69.2 Lymphocytes % 18.3 Monocytes % 9.8 Eosinophils % 2.5 Basophils % 0.2 Vancomycin Pre-Dose 39.994 H* Hepatitis A IgM Ab Negative Hep Bs Antigen Negative Hep B Core IgM Ab Negative Hepatitis C Antibody <0.1 Active Medications Generic Name Dose Route Start Last Admin Trade Name Freq PRN Reason Stop Dose Admin Amlodipine Besylate 5 mg 09/30/17 10:00 10/01/17 09:31 Norvasc - PO 5 mg DAILY GEORGE Administration Guaifenesin 10 ml 09/29/17 23:14 10/01/17 09:31 Robitussin - PO 10 ml Q6H PRN Administration COUGH Vancomycin HCl 1,000 mg/ 250 mls @ 166.667 mls/hr 09/29/17 16:45 10/01/17 04: 35 Dextrose IVPB 166.667 mls/hr Q12H GEORGE Administration Ceftriaxone Sodium 2 gm/ 100 mls @ 100 mls/hr 09/29/17 16:45 10/01/17 09:31 Dextrose IVPB 100 mls/hr DAILY GEORGE Administration ASSESSMENT/PLAN: Pt is a 67 y/o F with PMH HTN, pancreatic tumor s/p excision, who presented to ED with 1 week of URI and 4 d of left arm cellulitis following a vaccine in L upper arm. #Cellulitis -onset following vaccine -pulses/sensation intact -WBC improving -region of erythema was circled in black marker. It since expanded and was re- drawn #URI -Cough, malaise x 1week -CXR negative -? Viral -rapid flu swab negative -note: Vanc trough was drawn shortly after Vanco dose had been given. Repeat vanc trough ordered. Plan -Vanc day 3, Rocephin day 3 -Sputum Cx neg -BCx neg -will likely need 1 more day IV Abx Georgi Lopez MD PGY-1 ID Visit type - Emergency Visit Emergency Visit: No - New Patient This patient is new to me today: No - Critical Care Critical Care patient: No
[2017-10-01] MEDS ORDERED: RANITIDINE HCL 150 MG TABLET (FP) PO ONE (14:15)
--- NOTE | 2017-10-01 15:20 | PN ---
Teaching Attending Note Name of Resident: Georgi Lopez ATTENDING PHYSICIAN STATEMENT I saw and evaluated the patient. I reviewed the resident's note and discussed the case with the resident. I agree with the resident's findings and plan as documented. SUBJECTIVE: Feeling better Less L UE pain Occasional cough OBJECTIVE: Non- toxic appearing Afebrile Few crepitations, bases decreased L UE erythema/ warmth ASSESSMENT AND PLAN: Cellulitis L UE Leukocytosis- improved URI Continue empiric ceftriaxone/ vancomycin ? po next 24hr
[2017-10-01] MEDS ORDERED: PT OWN MED DRAWER 7, Y5N ONE (16:44)
[2017-10-01] MEDS: VANCOMYCIN 750 MG in DEXTROSE 5%-WATER - 250 ML IVPB SCH (19:49)
[2017-10-01] MEDS: RANITIDINE HCL 150 MG TABLET (FP) PO SCH (21:24)
[2017-10-02] MEDS: VANCOMYCIN 750 MG in DEXTROSE 5%-WATER - 250 ML IVPB SCH (06:14)
[2017-10-02 07:44] LABS: BASO % 0.6 % (0-2.0); EOS % 2.7 % (0-4.5); HEMATOCRIT 34.5 % (32.4-45.2); HEMOGLOBIN 11.8 GM/dL (10.7-15.3); LYMPH % 22.3 % (8-40); MCH 29.2 pg (25.7-33.7); MCHC 34.1 g/dl (32.0-36.0); MEAN CELL VOLUME 85.6 fl (80-96); MEAN PLT VOLUME 9.2 fl (7.5-11.1); MONO % 10.1 % (3.8-10.2); NEUT % 64.3 % (42.8-82.8); PLATELET COUNT 449 K/MM3 (134-434); RBC 4.03 M/mm3 (3.60-5.2); RDW 14.1 % (11.6-15.6); WHITE BLOOD COUNT 10.2 K/mm3 (4.0-10.0)
[2017-10-02 08:13] LABS: ALBUMIN 3.1 g/dl (3.4-5.0); ALK PHOS 125 U/L (45-117); ANION GAP 6 (8-16); BILIRUBIN,TOTAL 0.2 mg/dL (0.2-1.0); BLOOD UREA NITROGEN 10 mg/dL (7-18); CALCIUM 8.6 mg/dL (8.5-10.1); CHLORIDE 105 mmol/L (98-107); CO2 27 mmol/L (21-32); CREATININE 0.8 mg/dL (0.55-1.02); GLUCOSE,RANDOM 152 mg/dL (74-106); MAGNESIUM 2.2 mg/dL (1.8-2.4); SGOT/AST 20 U/L (15-37); SGPT/ALT 47 U/L (12-78); SODIUM 138 mmol/L (136-145)
[2017-10-02] MEDS ORDERED: DEXTROSE 5%-WATER 100 ML IVPB ONE (08:48)
[2017-10-02] MEDS: amLODIPine BESYLATE 5 MG TABLET (FP) PO SCH (09:05)
[2017-10-02] MEDS: RANITIDINE HCL 150 MG TABLET (FP) PO SCH (09:05)
[2017-10-02] MEDS: CEFTRIAXONE 2 GM in DEXTROSE 5%-WATER 100 ML IVPB SCH (09:05)
--- NOTE | 2017-10-02 13:48 | PN ---
Physical Exam: SUBJECTIVE: Patient seen and examined at bedside. No acute events. Arm erythema continues to improve. Liver enzymes normalizing. Pt is very eager to go home. OBJECTIVE: Vital Signs Period Temp Pulse Resp BP Sys/Leon Pulse Ox Last 24 Hr 97.4 F-98.3 F 75-98 18-20 123-140/55-81 95-96 GENERAL: The patient is awake, alert, and fully oriented, in no acute distress. HEAD: Normal with no signs of trauma. EYES: sclera anicteric, conjunctiva clear. No ptosis. ENT: oropharynx clear without exudates, moist mucous membranes. NECK: Trachea midline, full range of motion, supple. LUNGS: Breath sounds equal, clear to auscultation bilaterally, no wheezes, no crackles, no accessory muscle use. HEART: Regular rate and rhythm, S1, S2 without murmur, rub or gallop. ABDOMEN: Soft, nontender, nondistended, normoactive bowel sounds, no guarding, no rebound, no hepatosplenomegaly, no masses. EXTREMITIES: 2+ pulses, warm, well-perfused, no edema. LUE with region of erythema. Improving, but still warmer than contralateral arm. NEUROLOGICAL: Cranial nerves II through XII grossly intact. Normal speech, gait not observed. PSYCH: Normal mood, normal affect. SKIN: as above Laboratory Results - last 24 hr 10/01/17 10/02/17 10/02/17 15:30 06:30 06:30 WBC 10.2 H RBC 4.03 Hgb 11.8 Hct 34.5 MCV 85.6 MCH 29.2 MCHC 34.1 RDW 14.1 Plt Count 449 H MPV 9.2 Neutrophils % 64.3 Lymphocytes % 22.3 D Monocytes % 10.1 Eosinophils % 2.7 Basophils % 0.6 Sodium 138 Potassium 4.0 Chloride 105 Carbon Dioxide 27 Anion Gap 6 L BUN 10 Creatinine 0.8 Creat Clearance w eGFR > 60 Random Glucose 152 H Calcium 8.6 Magnesium 2.2 Total Bilirubin 0.2 D AST 20 ALT 47 Alkaline Phosphatase 125 H Total Protein 7.0 Albumin 3.1 L Vancomycin Pre-Dose 15.533 H* Active Medications Generic Name Dose Route Start Last Admin Trade Name Freq PRN Reason Stop Dose Admin Amlodipine Besylate 5 mg 09/30/17 10:00 10/02/17 09:05 Norvasc - PO 5 mg DAILY GEORGE Administration Guaifenesin 10 ml 09/29/17 23:14 10/01/17 21:24 Robitussin - PO 10 ml Q6H PRN Administration COUGH Ceftriaxone Sodium 2 gm/ 100 mls @ 100 mls/hr 09/29/17 16:45 10/02/17 09:05 Dextrose IVPB 100 mls/hr DAILY GEORGE Administration Vancomycin HCl 750 mg/ 250 mls @ 250 mls/hr 10/01/17 19:00 10/02/17 06:14 Dextrose IVPB 250 mls/hr BID@0700,1900 GEORGE Administration Ranitidine HCl 150 mg 10/01/17 22:00 10/02/17 09:05 Zantac - PO 150 mg BID GEORGE Administration ASSESSMENT/PLAN: Pt is a 67 y/o F with PMH HTN, pancreatic tumor s/p excision, who presented to ED with 1 week of URI and 4 d of left arm cellulitis following a vaccine in L upper arm. #Cellulitis -onset following vaccine -pulses/sensation intact -WBC improving -region of erythema was circled in black marker. It since expanded and was re- drawn #URI: Resolved -Cough, malaise x 1week -CXR negative -? Viral -rapid flu swab negative Plan -Vanc day 4, Rocephin day 4. D/c Vanc and zosyn. Recommend 1 week Clindamycin 300 TID with probiotics Georgi Lopez MD PGY-1 ID Visit type - Emergency Visit Emergency Visit: No - New Patient This patient is new to me today: No - Critical Care Critical Care patient: No
[2017-10-02] MEDS ORDERED: CLINDAMYCIN HCL 150 MG CAPSULE (FP) PO SCH (15:30)
--- NOTE | 2017-10-02 15:44 | PN ---
Teaching Attending Note Name of Resident: Georgi Lopez ATTENDING PHYSICIAN STATEMENT I saw and evaluated the patient. I reviewed the resident's note and discussed the case with the resident. I agree with the resident's findings and plan as documented. SUBJECTIVE: OBJECTIVE: ASSESSMENT AND PLAN: cellulitis much improved switch to po clindamycin 300 tid for 7 days protiotics for one month
--- NOTE | 2017-10-02 16:23 | DS ---
Physical Exam: SUBJECTIVE: Patient seen and examined OBJECTIVE: left cellulitis arm improving, WBC trending down 19.1>10, no fevers overnight, vitals stable Patient is asking for new PCP referral as she lives in [place] and is unable to travel to [place] to see her PCP. Wants to see same physicians who attended her here, referred to [facility] Lungs clear to auscultation Vital Signs Period Temp Pulse Resp BP Sys/Leon Pulse Ox Last 24 Hr 97.4 F-98.3 F 75-98 18-20 123-140/55-81 95-96 PHYSICAL EXAM GENERAL: The patient is awake, alert, and fully oriented, in no acute distress. HEAD: Normal with no signs of trauma. EYES: PERRL, extraocular movements intact, sclera anicteric, conjunctiva clear. No ptosis. ENT: Ears normal, nares patent, oropharynx clear without exudates, moist mucous membranes. NECK: Trachea midline, full range of motion, supple. LUNGS: Breath sounds equal, clear to auscultation bilaterally HEART: Regular rate and rhythm ABDOMEN: Soft, nontender, nondistended, normoactive bowel sounds, no guarding, no rebound, no hepatosplenomegaly, no masses. NEUROLOGICAL: Normal speech, gait not observed. PSYCH: Normal mood, normal affect. SKIN: left arm cellulitis, improving, areas marked. LABS Laboratory Results - last 24 hr 10/01/17 10/02/17 10/02/17 15:30 06:30 06:30 WBC 10.2 H RBC 4.03 Hgb 11.8 Hct 34.5 MCV 85.6 MCH 29.2 MCHC 34.1 RDW 14.1 Plt Count 449 H MPV 9.2 Neutrophils % 64.3 Lymphocytes % 22.3 D Monocytes % 10.1 Eosinophils % 2.7 Basophils % 0.6 Sodium 138 Potassium 4.0 Chloride 105 Carbon Dioxide 27 Anion Gap 6 L BUN 10 Creatinine 0.8 Creat Clearance w eGFR > 60 Random Glucose 152 H Calcium 8.6 Magnesium 2.2 Total Bilirubin 0.2 D AST 20 ALT 47 Alkaline Phosphatase 125 H Total Protein 7.0 Albumin 3.1 L Vancomycin Pre-Dose 15.533 H* HOSPITAL COURSE: Date of Admission:09/29/17 Date of Discharge: 10/02/17 Patient is a 67 year old female with a significant medical history of hypertension, hysterectomy, appendectomy, cholecytectomy and benign pancreatic tumor removal (2001). She presents to the ED on 09/29/2017 with left arm cellulitis after she received the pneumonia vaccine. ID Cellulitis of left upper arm, improving Developed cellulits post pneumococcal vaccine Received 4 days of Vancomycin and Ceftriaxone converted to Clindamycin 300mg TID x 1 more week with acidophillus BC negative, afebrile, vitals stable, wbc trending down Card: Hypertension, controlled On Norvasc, monitor Chest pain, resolved trops negative Cough, improving Lungs clear to auscultation Chest xray negative GI: AST, ALT, alk phos trended down No abd pain or discomfort Disposition: full code. Patient wants to follow up with the clinic on discharge. Minutes to complete discharge: 60 Discharge Summary Reason For Visit: CELLULITIS Condition: Improved - Instructions Diet, Activity, Other Instructions: Mrs Ford. Please return to the ER if your arm does not improve or gets worse. Continue the antibiotics as outlined in your discharge instructions. Please see Dr. Georgi Lopez at the clinic. Call for an appointment. Thank you for allowing us to care for you. Hope you feel better soon. Christin Resendiz, MIRA [facility] [phone] Referrals: Remington Byrd MD [Staff Physician] - 1 Week (Please see Dr. Georgi Lopez at this clinic. Please call and make an appointment within 1 week after discharge.) Georgi Lopez, RES [Resident] - Disposition: HOME - Home Medications Comprehensive Discharge Medication List: Ambulatory Orders Amlodipine Besylate [Norvasc -] 5 mg PO DAILY 09/29/17 Clindamycin [Cleocin -] 300 mg PO TID #42 capsule 10/02/17 Lactobacillus Acidophilus [Bacid -] 1 tab PO DAILY #7 tab 10/02/17 This patient is new to me today: No Emergency Visit: Yes ED Registration Date: 09/29/17 Care time: The patient presented to the Emergency Department on the above date and was hospitalized for further evaluation of their emergent condition. Critical Care patient: No - Discharge Referral Referred to [facility] No
[2017-10-02 17:10] VITALS: BP 129/87; PULSE 79; TEMP 98.2
[2017-10-03] MEDS ORDERED: LACTOBACILLUS ACIDOPHILUS 1 TABLET PO SCH (10:00)
== END 2017-10-02 17:15 | disposition home or self-care (01) | DRG 868 ==
LOC: JER 10:20 → JERBED 13:01 → J7W 14:39
PROVIDERS: ADMIT Internal Medicine; ATTEND Nurse Practitioner Family
DX: T88.0XXA Infection following immunization, initial encounter (principal); L03.114 Cellulitis of left upper limb; I10 Essential (primary) hypertension; Y84.8 Other medical procedures as the cause of abnormal reaction of the patient, or of later complication, without mention of misadventure at the time of the procedure; Y82.9 Unspecified medical devices associated with adverse incidents; Z90.710 Acquired absence of both cervix and uterus; J06.9 Acute upper respiratory infection, unspecified; K76.0 Fatty (change of) liver, not elsewhere classified; R05 Cough; R07.89 Other chest pain
CPT/HCPCS: 36415; 71046-TC-FY; 76705-TC; 80053; 80074; 82550; 83735; 83880; 84484; 85025; 87040; 87070; 87205; 87804; 93005; 93010; 99283-25; G0480; J0131